=== PATIENT | male | born 1985 | race Caucasian/White ===

== ENCOUNTER 2020-01-31 21:22 | Emergency (ER) | payer OTHER ==
[~2020-01-31] VITALS: Ht 195.6 cm; Wt 122.5 kg
[~2020-01-31 21:22] MED LIST: AMOXICILLIN875 MG PO; LORTABELXR PO
[2020-01-31 22:21] VITALS: BP 141/70
== END 2020-01-31 22:22 | disposition home or self-care (01) ==
LOC: M.ERS 21:22
DX: S61.215A Laceration without foreign body of left ring finger without damage to nail, initial encounter (principal); S61.217A Laceration without foreign body of left little finger without damage to nail, initial encounter; W26.0XXA Contact with knife, initial encounter; Y93.89 Activity, other specified; Y92.89 Other specified places as the place of occurrence of the external cause; Y99.8 Other external cause status

== ENCOUNTER 2021-03-17 22:47 | Emergency (ER) | payer OTHER ==
[~2021-03-17] VITALS: Ht 193 cm; Wt 108.9 kg
[2021-03-17 23:00] VITALS: BP 138/88
== END 2021-03-17 23:58 | disposition left against medical advice (07) ==
LOC: M.ERS 22:47
DX: M25.562 Pain in left knee (principal); M79.89 Other specified soft tissue disorders; Z53.21 Procedure and treatment not carried out due to patient leaving prior to being seen by health care provider